=== PATIENT | female | born 1985 | race Caucasian/White ===

== ENCOUNTER 2018-02-04 17:19 | Emergency (ER) | payer OTHER ==
[2018-02-04] MEDS ORDERED: FLUO40CA76 PO (17:35)
[2018-02-04] MEDS ORDERED: AMLO-96 PO (17:35)
--- NOTE | 2018-02-04 17:38 | ER Report ---
History and Physical Time Seen By MD: 17:33 Hx. of Stated Complaint: PT PRESENTS ON VACATION WITH R FLANK PAIN FOR 3 DAYS HPI/ROS CHIEF COMPLAINT: Flank pain HISTORY OF PRESENT ILLNESS: This is a 32-year-old female presents to the emergency department for right flank pain patient patient states about 3 days ago she had a sudden onset of right kidney and flank pain. Patient states it's been progressively getting worse, sharp sensation, unable to find a comfortable position. Patient has had intermittent nausea no vomiting. Patient is very tearful. No history of kidney stones. Patient also denies any dysuria. No fevers or chills. No chest pain or shortness of breath. REVIEW OF SYSTEMS: Respiratory: No cough, no dyspnea. Cardiovascular: No chest pain, no palpitations. Gastrointestinal: No vomiting, no abdominal pain. Musculoskeletal: As above. Allergies: Uncoded Allergies: CONTRAST (Adverse Reaction, Intermediate, 02/04/18) Home Meds Active Scripts Ondansetron (ZOFRAN ODT) 4 Mg Tab.rapdis, 4 MG PO Q6H Y for NAUSEA/VOMITING, # 20 TAB.NICO 0 Refills Prov:AURA SMART [facility] 02/04/18 Hydrocodone Bit/Acetaminophen (HYDROCODON-ACETAMINOPHEN 5-325) 1 Each Tablet, 1 EACH PO Q4-6H Y for PAIN, #10 TAB Prov:AURA SMART [facility] 02/04/18 Tamsulosin Hcl (FLOMAX) 0.4 Mg Cap.er.24h, 0.4 MG PO DAILY for 15 Days, #15 CAP 0 Refills Prov:AURA SMART [facility] 02/04/18 Reported Medications Amlodipine Besylate (AMLODIPINE BESYLATE) 5 Mg Tablet, 1 TAB PO QDAY, TAB 02/04/18 Fluoxetine Hcl (PROZAC) 40 Mg Capsule, 80 MG PO QDAY, CAPSULE 02/04/18 Past Medical/Surgical History The patient has a past medical and surgical history of back pain, hysterectomy, , breast augmentation. Reviewed Nurses Notes: Yes Hx Substance Use Disorder: No Hx Alcohol Use: No Constitutional Vital Sign - Last 24 Hours 02/04/18 02/04/18 02/04/18 02/04/18 17:26 17:28 17:30 17:49 Temp 98.8 Pulse 75 69 Resp 20 B/P (MAP) 141/88 (105) 141/88 145/89 (107) Pulse Ox 96 96 O2 Delivery Room Air 02/04/18 02/04/18 02/04/18 02/04/18 18:00 18:05 18:30 18:35 Pulse 73 73 B/P (MAP) 130/82 (98) 133/80 (97) Pulse Ox 95 94 02/04/18 02/04/18 02/04/18 18:50 19:00 19:05 Pulse 73 67 B/P (MAP) 121/81 (94) Pulse Ox 94 96 Physical Exam General Appearance: The patient is alert, has no immediate need for airway protection and no current signs of toxicity. Eyes: Pupils equal and round no injection. Respiratory: Chest is non tender, lungs are clear to auscultation. Cardiac: regular rate and rhythm, no murmurs, clicks or rubs. Gastrointestinal: Abdomen is soft, mild tenderness to the right upper quadrant radiating into the back. No masses, bowel sounds normal. Right CVA tenderness. Musculoskeletal: Neck: Neck is supple and non tender. Extremities have full range of motion and are non tender. Skin: No rashes or lesions. DIFFERENTIAL DIAGNOSIS: After history and physical exam differential diagnosis was considered for abdominal pain in a female including but not limited to ovarian cyst, pelvic inflammatory disease, kidney stone, ovarian torsion, urinary tract infection, and appendicitis. Medical Decision Making Data Points Result Diagram: 02/04/18 1746 02/04/18 1746 Laboratory Hematology Test 02/04/18 17:25 02/04/18 17:46 Urine Color Yellow Urine Clarity Cloudy Urine pH 7.0 pH (4.8-9.5) Urine Specific [place] 1.015 Urine Protein Negative mg/dL (NEGATIVE) Urine Glucose (UA) Negative mg/dL (NEGATIVE) Urine Ketones Negative mg/dL (NEGATIVE) Urine Blood Negative (NEGATIVE) Urine Nitrite Negative (NEGATIVE) Urine Bilirubin Negative (NEGATIVE) Urine Urobilinogen Negative mg/dL (0.2-1.9) Urine Leukocyte Esterase Negative (NEGATIVE) Urine RBC None /HPF (0-2/HPF) Urine WBC <1 /HPF (0-5/HPF) Urine Squamous Epithelial Cells Many /LPF (</=FEW) Urine Amorphous Crystals Few /HPF Urine Bacteria Few /HPF (NONE-FEW) Urine Mucus Few /HPF (NONE-FEW) Red Blood Count 4.49 M/uL (4.17-5.56) Mean Corpuscular Volume 90.9 fL (80.0-96.0) Mean Corpuscular Hemoglobin 32.3 pg (26.0-33.0) Mean Corpuscular Hemoglobin Concent 35.5 g/dL (32.0-36.0) Red Cell Distribution Width 13.4 % (11.5-14.5) Mean Platelet Volume 7.9 fL (7.2-11.1) Neutrophils (%) (Auto) 48.3 % (39.4-72.5) Lymphocytes (%) (Auto) 39.2 % (17.6-49.6) Monocytes (%) (Auto) 7.9 % (4.1-12.4) Eosinophils (%) (Auto) 3.5 % (0.4-6.7) Basophils (%) (Auto) 1.1 % (0.3-1.4) Nucleated RBC Relative Count (auto) 0.0 /100WBC Neutrophils # (Auto) 3.5 K/uL (2.0-7.4) Lymphocytes # (Auto) 2.8 K/uL (1.3-3.6) Monocytes # (Auto) 0.6 K/uL (0.3-1.0) Eosinophils # (Auto) 0.3 K/uL (0.0-0.5) Basophils # (Auto) 0.1 K/uL (0.0-0.1) Nucleated RBC Absolute Count (auto) 0.00 K/uL Sodium Level 136 mmol/L (137-145) Potassium Level 4.2 mmol/L (3.5-5.0) Chloride Level 101 mmol/L (98-107) Carbon Dioxide Level 22 mmol/L (22-31) Blood Urea Nitrogen 13 mg/dl (7-18) Creatinine 0.70 mg/dl (0.52-1.04) Glomerular Filtration Rate Calc > 60.0 Random Glucose 90 mg/dl (75-110) Calcium Level 9.6 mg/dl (8.4-10.2) Total Bilirubin 0.4 mg/dl (0.2-1.3) Aspartate Amino Transf (AST/SGOT) 21 U/L (0-35) Alanine Aminotransferase (ALT/SGPT) 25 U/L (0-56) Alkaline Phosphatase 77 U/L (0-126) Total Protein 7.9 g/dl (6.3-8.2) Albumin 4.7 g/dl (3.5-5.0) Lipase 52 U/L (23-300) Chemistry Test 02/04/18 17:25 02/04/18 17:46 Urine Color Yellow Urine Clarity Cloudy Urine pH 7.0 pH (4.8-9.5) Urine Specific [place] 1.015 Urine Protein Negative mg/dL (NEGATIVE) Urine Glucose (UA) Negative mg/dL (NEGATIVE) Urine Ketones Negative mg/dL (NEGATIVE) Urine Blood Negative (NEGATIVE) Urine Nitrite Negative (NEGATIVE) Urine Bilirubin Negative (NEGATIVE) Urine Urobilinogen Negative mg/dL (0.2-1.9) Urine Leukocyte Esterase Negative (NEGATIVE) Urine RBC None /HPF (0-2/HPF) Urine WBC <1 /HPF (0-5/HPF) Urine Squamous Epithelial Cells Many /LPF (</=FEW) Urine Amorphous Crystals Few /HPF Urine Bacteria Few /HPF (NONE-FEW) Urine Mucus Few /HPF (NONE-FEW) White Blood Count 7.2 k/uL (4.5-11.0) Red Blood Count 4.49 M/uL (4.17-5.56) Hemoglobin 14.5 g/dL (12.0-16.0) Hematocrit 40.8 % (34.0-47.0) Mean Corpuscular Volume 90.9 fL (80.0-96.0) Mean Corpuscular Hemoglobin 32.3 pg (26.0-33.0) Mean Corpuscular Hemoglobin Concent 35.5 g/dL (32.0-36.0) Red Cell Distribution Width 13.4 % (11.5-14.5) Platelet Count 272 K/uL (150-450) Mean Platelet Volume 7.9 fL (7.2-11.1) Neutrophils (%) (Auto) 48.3 % (39.4-72.5) Lymphocytes (%) (Auto) 39.2 % (17.6-49.6) Monocytes (%) (Auto) 7.9 % (4.1-12.4) Eosinophils (%) (Auto) 3.5 % (0.4-6.7) Basophils (%) (Auto) 1.1 % (0.3-1.4) Nucleated RBC Relative Count (auto) 0.0 /100WBC Neutrophils # (Auto) 3.5 K/uL (2.0-7.4) Lymphocytes # (Auto) 2.8 K/uL (1.3-3.6) Monocytes # (Auto) 0.6 K/uL (0.3-1.0) Eosinophils # (Auto) 0.3 K/uL (0.0-0.5) Basophils # (Auto) 0.1 K/uL (0.0-0.1) Nucleated RBC Absolute Count (auto) 0.00 K/uL Glomerular Filtration Rate Calc > 60.0 Calcium Level 9.6 mg/dl (8.4-10.2) Total Bilirubin 0.4 mg/dl (0.2-1.3) Aspartate Amino Transf (AST/SGOT) 21 U/L (0-35) Alanine Aminotransferase (ALT/SGPT) 25 U/L (0-56) Alkaline Phosphatase 77 U/L (0-126) Total Protein 7.9 g/dl (6.3-8.2) Albumin 4.7 g/dl (3.5-5.0) Lipase 52 U/L (23-300) Urinalysis Test 02/04/18 17:25 Urine Color Yellow Urine Clarity Cloudy Urine pH 7.0 pH (4.8-9.5) Urine Specific [place] 1.015 Urine Protein Negative mg/dL (NEGATIVE) Urine Glucose (UA) Negative mg/dL (NEGATIVE) Urine Ketones Negative mg/dL (NEGATIVE) Urine Blood Negative (NEGATIVE) Urine Nitrite Negative (NEGATIVE) Urine Bilirubin Negative (NEGATIVE) Urine Urobilinogen Negative mg/dL (0.2-1.9) Urine Leukocyte Esterase Negative (NEGATIVE) Urine RBC None /HPF (0-2/HPF) Urine WBC <1 /HPF (0-5/HPF) Urine Squamous Epithelial Cells Many /LPF (</=FEW) Urine Amorphous Crystals Few /HPF Urine Bacteria Few /HPF (NONE-FEW) Urine Mucus Few /HPF (NONE-FEW) EKG/Imaging Imaging CT abdomen and pelvis without contrast Indication: Flank pain. Comparison: None Available. Technique: Axial CT images are obtained through the abdomen and pelvis. Reformatted coronal and sagittal images were reviewed. IV contrast was not administered. One of the following dose optimization techniques was utilized in the performance of this exam: automated exposure control; adjustment of the mA and/ or kV according to the patient's size; or use of an iterative reconstruction technique. Specific details can be referenced in the facility's radiology CT exam operational policy. Findings: Lower lung [place]: Limited views lower lung field are unremarkable. Evaluation of the solid organs of the abdomen is limited without IV contrast. Liver: No focal parenchymal abnormality of the liver. Biliary: Status post cholecystectomy. Biliary system is unremarkable. Pancreas: Normal appearance. Spleen: Normal appearance. Adrenal glands: Unremarkable. Kidneys / retroperitoneum: The right kidney does show a 1 mm stone in the collecting system without significant hydronephrosis. No other stones are seen in the right urinary system. The right ureter is unremarkable. Left kidney shows no stones or hydronephrosis. No discrete renal lesions. Bowel / peritoneum / mesenteries: The visualized gastrointestinal tract, including the appendix, within normal limits. The stomach is unremarkable. No free air, free fluid, fluid collections or areas of inflammation. Small umbilical hernia containing fat. Lymph node assessment: No pathologic adenopathy identified. Pelvic structures: Uterus is not visualized may been surgically removed. The left ovary is normal. The right ovary is not visualized. Remaining pelvic structures visualized within normal limits. Vessels: No significant atherosclerotic calcifications seen throughout a nonaneurysmal abdominal aorta and branches. Musculoskeletal / Body wall: No acute or aggressive osseous abnormality. IMPRESSION: 1. Right kidney shows a 1 mm nonobstructing calculi. Report Dictated By: Ramez Scott at 02/04/2018 6:37 PM Report E-Signed By: Ramez Scott at 02/04/2018 6:46 PM WSN:[id number] ED Course/Re-evaluation Clinical Indication for ER IV: Hydration, IV Access ED Course The patient was admitted to room. A history of score obtained. Differential diagnoses were considered. An IV was started. A CBC, CMP, UA were obtained. Lab studies unremarkable. Negative UA. A 1 L normal saline bolus, 4 mg IV Zofran, 30 mg IV Toradol, 30 mg IV Norflex, 4 mg IV morphine, Flomax. Patient's pain did improve after the medications. A CT of the abdomen pelvis is showing a nonobstructive right renal calculi. The patient was given a prescription for Flomax, hydrocodone and Zofran. Patient was instructed to take ibuprofen as needed as well. Patient is on vacation, she will try to continue with her vacation. I did recommend that she follows up in the nearest emergency department or clinic should she develop worsening symptoms or have an aortic concerns. Patient was also instructed to follow-up with her primary care provider when she returns to [place]. The patient had no other questions or concerns at this time and was discharged home. Decision to Disposition Date: Feb 04, 2018 Decision to Disposition Time: 19:59 Depart Departure Latest Vital Signs Vital Signs Date Time Temp Pulse Resp B/P (MAP) Pulse Ox O2 Delivery O2 Flow Rate FiO2 02/04/18 19:05 67 96 02/04/18 19:00 121/81 (94) 02/04/18 17:28 98.8 20 Room Air Impression: Primary Impression: Renal calculus, right Condition: Improved Disposition: HOME OR SELF-CARE New Scripts Ondansetron (ZOFRAN ODT) 4 Mg Tab.rapdis 4 MG PO Q6H Y for NAUSEA/VOMITING, #20 TAB.NICO 0 Refills Prov: AURA SMARTP- 02/04/18 Hydrocodone Bit/Acetaminophen (HYDROCODON-ACETAMINOPHEN 5-325) 1 Each Tablet 1 EACH PO Q4-6H Y for PAIN, #10 TAB Prov: AURA SMARTP- 02/04/18 Tamsulosin Hcl (FLOMAX) 0.4 Mg Cap.er.24h 0.4 MG PO DAILY for 15 Days, #15 CAP 0 Refills Prov: AURA SMART- 02/04/18 Patient Instructions: Kidney Stones (ED) Additional Instructions: Drink plenty of water. Get plenty of rest. Take the medications as prescribed. Take Ibuprofen or Tylenol as needed for pain. Take Hydrocodone for severe pain. Return to the ED for any other concerns or worsening symptoms. AURA SMART- Feb 04, 2018 17:38
[2018-02-04] MEDS ORDERED: NS(*) 0.9% 1000 ML BAG 1,000 ML IV ONE (17:44)
[2018-02-04] MEDS ORDERED: ONDANSETRON 4 MG/2 ML VIAL IVP ONE (17:45)
[2018-02-04] MEDS ORDERED: KETOROLAC 30 MG/ML VIAL IVP ONE (17:45)
[2018-02-04 18:08] LABS: PLATELET COUNT, AUTOMATED 272 K/uL (150-450)
[2018-02-04] MEDS ORDERED: ORPHENADRINE 60MG/2ML INJ IVP ONE (18:40)
--- NOTE | 2018-02-04 18:48 | RADIOLOGY IMAGING REPORT ---
FAC[place] [facility] [place] NAME: Jamilah Caceres : 1985 MR: [id number] V: [id number] EXAM DATE: ORDERING PHYSICIAN: AURA SMART TECHNOLOGIST: Location: [facility] Patient: Jamilah Caceres : 1985 Visit/Account:[id number] Date of Sevice: 02/04/2018 CT abdomen and pelvis without contrast Indication: Flank pain. Comparison: None Available. Technique: Axial CT images are obtained through the abdomen and pelvis. Reformatted coronal and sagit trina images were reviewed. IV contrast was not administered. One of the following dose optimization techniques was utilized in the performance of this exam: auto mated exposure control; adjustment of the mA and/or kV according to the patient's size; or use of an iterative reconstruction technique. Specific details can be referenced in the facility's radiology C T exam operational policy. Findings: Lower lung [place]: Limited views lower lung field are unremarkable. Evaluation of the solid organs of the abdomen is limited without IV contrast. Liver: No focal parenchymal abnormality of the liver. Biliary: Status post cholecystectomy. Biliary system is unremarkable. Pancreas: Normal appearance. Spleen: Normal appearance. Adrenal glands: Unremarkable. Kidneys / retroperitoneum: The right kidney does show a 1 mm stone in the collecting system without s ignificant hydronephrosis. No other stones are seen in the right urinary system. The right ureter is unremarkable. Left kidney shows no stones or hydronephrosis. No discrete renal lesions. Bowel / peritoneum / mesenteries: The visualized gastrointestinal tract, including the appendix, with in normal limits. The stomach is unremarkable. No free air, free fluid, fluid collections or areas of inflammation. Small umbilical hernia containin g fat. Lymph node assessment: No pathologic adenopathy identified. Pelvic structures: Uterus is not visualized may been surgically removed. The left ovary is normal. The right ovary is not visualized. Remaining pelvic structures visualized within normal limits. Vessels: No significant atherosclerotic calcifications seen throughout a nonaneurysmal abdominal aort a and branches. Musculoskeletal / Body wall: No acute or aggressive osseous abnormality. IMPRESSION: 1. Right kidney shows a 1 mm nonobstructing calculi. Report Dictated By: Ramez Scott at 02/04/2018 6:37 PM Report E-Signed By: Ramez Scott at 02/04/2018 6:46 PM [id number]
[2018-02-04 19:30] VITALS: BP 133/89
[2018-02-04] MEDS ORDERED: TAMSULOSIN HCL 0.4 MG CAP PO ONE (19:45)
[2018-02-04] MEDS ORDERED: MORPHINE 4 MG/ML SDV IVP ONE (19:45)
[2018-02-04] MEDS ORDERED: TAMS0.4C25 PO (19:47)
[2018-02-04] MEDS ORDERED: ONDA4TAB PO (19:47)
[2018-02-04] MEDS ORDERED: HYDR-385 PO (19:47)
== END 2018-02-04 20:07 | disposition home or self-care (01) ==
LOC: ER 17:41
DX: N20.0 Calculus of kidney (principal)
CPT/HCPCS: 74176; 81001; 83690; 85025; 96361; 96374; 96375; 99284; J1885; J2270; J2360; J2405; J7030; 82040; 82247; 82310; 82374; 82435; 82565; 82947; 84075; 84132; 84155; 84295; 84450; 84460; 84520